=== PATIENT | male | born 1985 | race Two or more races ===

== ENCOUNTER 2017-04-13 14:42 | Emergency (ER) | payer MEDICAID, OTHER ==
[~2017-04-13] VITALS: Ht 175.3 cm; Wt 78.0 kg
[2017-04-13] MEDS ORDERED: MECLIZINE CHEWABLE 25 MG TAB ONE (15:10)
[2017-04-13] MEDS ORDERED: MECLIZINE CHEWABLE 25 MG TAB PO ONE (15:30)
[2017-04-13 15:31] LABS: HEMATOCRIT 43.6 % (39.2-51.8); HEMOGLOBIN 14.8 g/dL (13.7-18.0); WHITE BLOOD COUNT 5.9 x10^3/uL (3.4-10)
[2017-04-13 15:36] LABS: DAU SCREEN DISCLAIMER
[2017-04-13 15:44] LABS: ASPARTATE AMINO TRANSFERASE 13 U/L (15-37); BLOOD UREA NITROGEN 8 mg/dL (7-18)
[2017-04-13 17:29] VITALS: BP 114/68
== END 2017-04-13 17:31 | disposition home or self-care (01) ==
LOC: ED 16:49
DX: R42 Dizziness and giddiness (principal); F17.200 Nicotine dependence, unspecified, uncomplicated
CPT/HCPCS: 36415; 70450; 80053; 80307; 84439; 84443; 85025; 93005; 99285; G0479

== ENCOUNTER 2018-07-19 11:55 | Emergency (ER) | payer MEDICAID, OTHER ==
[~2018-07-19] VITALS: Ht 175.3 cm; Wt 83.1 kg
--- NOTE | 2018-07-19 12:50 | NUR ---
PT TO ROOM FROM [facility], PLACED ON MONITOR. PA AT BEDSIDE. NAD. CALL LIGHT WITHIN REACH
[2018-07-19] MEDS ORDERED: CYCLOBENZAPRINE 10 MG TABLET PO ONE (13:00)
[2018-07-19] MEDS ORDERED: KETOROLAC 30 MG/1 ML IM ONE (13:00)
[2018-07-19] MEDS ORDERED: CYCLOBENZAPRINE 10 MG TABLET ONE (13:09)
[2018-07-19] MEDS ORDERED: KETOROLAC 30 MG/1 ML ONE (13:10)
[2018-07-19 13:30] LABS: BASOPHILS # (AUTO) 0.04 x10^3/uL (0-0.1); BASOPHILS % (AUTO) 1 % (0-1); EOSINOPHILS # (AUTO) 0.85 x10^3/uL (0-0.4); EOSINOPHILS % (AUTO) 11 % (1-7); LYMPHOCYTES # (AUTO) 1.87 x10^3/uL (1-3.4); LYMPHOCYTES % (AUTO) 24 % (22-44); MD NO; MEAN CORPUSCULAR HEMOGLOBIN 29.4 pg (27.5-34.5); MEAN CORPUSCULAR HGB CONC 34.1 g/dL (33.2-36.2); MEAN CORPUSCULAR VOLUME 86.2 fL (81-97); MEAN PLATELET VOLUME 8.7 fL (7.4-10.4); MONOCYTES # (AUTO) 0.54 x10^3/uL (0.2-0.8); MONOCYTES % (AUTO) 7 % (2-9); NEUTROPHILS # (AUTO) 4.39 x10^3/uL (1.8-6.8); NEUTROPHILS % (AUTO) 57 % (42-75); PLATELET COUNT 247 x10^3/uL (130-400); RED BLOOD COUNT 4.91 x10^6/uL (4.38-5.82); RED CELL DISTRIBUTION WIDTH 12.6 % (9.4-14.8)
--- NOTE | 2018-07-19 13:34 | NUR ---
TASK RN: PT RESTING ON GURMELROSE. NO ACUTE DISTRESS NOTED. NO NEEDS REQUESTED AT THIS TIME.
[2018-07-19 13:37] LABS: ALBUMIN 4.1 g/dL (3.4-5.0); ANION GAP 4 mmol/L (5-15); CALCIUM 8.7 mg/dL (8.5-10.1); CHLORIDE 109 mmol/L (98-107); CREATININE 0.84 mg/dL (0.7-1.3)
[2018-07-19 13:39] VITALS: BP 122/80
[2018-07-19 14:30] LABS: MICROSCOPIC NOT IND
[2018-07-19 14:37] LABS: CULTURE INDICATED? NO
== END 2018-07-19 15:04 | disposition home or self-care (01) ==
LOC: ED 13:49
DX: S39.012A Strain of muscle, fascia and tendon of lower back, initial encounter (principal); J01.20 Acute ethmoidal sinusitis, unspecified; Q61.5 Medullary cystic kidney; X58.XXXA Exposure to other specified factors, initial encounter; Y93.89 Activity, other specified; Y92.89 Other specified places as the place of occurrence of the external cause; Y99.8 Other external cause status
CPT/HCPCS: 36415; 76770; 80048; 81003; 82040; 85025; 96372; 99284; J1885